=== PATIENT | male | born 2000 | race Two or more races ===

== ENCOUNTER 2022-06-23 15:42 | Emergency (ER) | payer OTHER ==
[~2022-06-23] VITALS: Ht 177.8 cm; Wt 66.2 kg
--- NOTE | 2022-06-23 16:00 | NUR ---
BIBFAMILY C/O FACIAL, NECK, AND BACK PAIN S/P SEIZURE LIKE ACTIVITY AFTER GLF LAST NIGHT. THE PATIENT RATES PAINS 6/10. THE PATIENT IS ALERT AND ORIENTED X4. IN ROOM AIR AND DENIES SOB. RESPIRATION REGULAR AND UNLABORED. WILL CONTINUE TO MONITOR THE PATIENT.
[2022-06-23] MEDS ORDERED: IV NS 0.9% 1,000 ML BAG IV ONE (16:30)
--- NOTE | 2022-06-23 16:35 | NUR ---
iv line is established, blood specimen collected and sent to the lab.
[2022-06-23 16:45] LABS: BASOPHILS % (AUTO) 0.5 % (0.0-2.0); EOSINOPHILS % (AUTO) 1.3 % (0.0-6.0); HEMATOCRIT 43 % (39-51); HEMOGLOBIN 14.7 g/dL (13.5-17.5); LYMPHOCYTES # (AUTO) 1.5 K/uL (0.8-4.8); MEAN CORPUSCULAR HGB CONC 34 g/dl (31.0-36.0); MEAN CORPUSCULAR VOLUME 93 fL (80-96); MONOCYTES # (AUTO) 0.6 K/uL (0.1-1.30); NEUTROPHILS # (AUTO) 3.6 K/uL (1.8-8.9); NEUTROPHILS % (AUTO) 62.2 % (43.0-81.0); PLATELET COUNT (AUTO) 159 K/uL (150-450); RED BLOOD CELL COUNT(AUTO) 4.62 MIL/uL (4.5-6.0); WHITE BLOOD COUNT (AUTO) 5.7 K/uL (4.3-11.0)
[2022-06-23 17:27] LABS: ALANINE AMINOTRANSFERASE 50 U/L (12-78); ALBUMIN 4.5 g/dL (3.4-5.0); ALCOHOL, BLOOD < 3 mg/dL (0-0); ALKALINE PHOSPHATASE 64 U/L (46-116); ASPARTATE AMINOTRANSFERASE 21 U/L (15-37); BILIRUBIN,DIRECT 0.2 mg/dL (0.0-0.2); BILIRUBIN,TOTAL 0.9 mg/dL (0.2-1.0); CALCIUM, SERUM 9.1 mg/dL (8.5-10.1); CARBON DIOXIDE 31 mmol/L (21-32); CHLORIDE 106 mmol/L (98-107); GLUCOSE 98 mg/dL (74-106); SODIUM SERUM 144 mmol/L (136-145); TOTAL PROTEIN, SERUM 7.3 g/dL (6.4-8.2); UREA NITROGEN, BLOOD 6 mg/dL (7-18)
--- NOTE | 2022-06-23 17:52 | NUR ---
urine collected and sent to the lab
--- NOTE | 2022-06-23 19:17 | NUR ---
REPORT GIVEN TO NURSE COOK FOR JESUS
[2022-06-23] MEDS ORDERED: IBUPROFEN 400 MG TABLET PO ONE (20:00)
[2022-06-23] MEDS ORDERED: IBUPROFEN 400 MG TABLET ONE (20:07)
--- NOTE | 2022-06-23 20:17 | NUR ---
IV removed. Catheter intact and site benign. Pressure and 4x4 applied to site. No bleeding noted.Patient discharged to home in stable condition. Written and verbal after care instructions given. Patient verbalizes understanding of instruction.
[2022-06-23 20:38] VITALS: BP 119/68
== END 2022-06-23 20:38 | disposition home or self-care (01) ==
LOC: ER 15:51
DX: S02.2XXA Fracture of nasal bones, initial encounter for closed fracture (principal); S01.511A Laceration without foreign body of lip, initial encounter; R56.9 Unspecified convulsions; X58.XXXA Exposure to other specified factors, initial encounter; Y93.89 Activity, other specified; Y92.89 Other specified places as the place of occurrence of the external cause; Y99.8 Other external cause status
CPT/HCPCS: 99285; 96360; 93005; 72125; 70450; 70486; 85025; 80048; 80076; 36415; 80320; 80307; J7030; G0480